=== PATIENT | female | born 1990 | race Two or more races ===

== ENCOUNTER 2020-04-13 17:21 | Emergency (ER) | payer MEDICAID ==
[~2020-04-13] VITALS: Ht 162.6 cm; Wt 63.3 kg
--- NOTE | 2020-04-13 17:38 | NUR ---
PT AMBULATED TO THE BR W/ A STEADY GAIT.
[2020-04-13] MEDS ORDERED: MORPHINE SULFATE 4 MG/ML, 1ML ONE (17:59)
[2020-04-13] MEDS ORDERED: ONDANSETRON 2MG/ML, 2ML ONE (17:59)
[2020-04-13] MEDS ORDERED: SODIUM CHLORIDE FLUSH 10ML SYR IVF ONE (18:00)
[2020-04-13] MEDS ORDERED: MORPHINE SULFATE 4 MG/ML, 1ML IVPush PRN (18:00)
[2020-04-13] MEDS ORDERED: SODIUM CHLORIDE 0.9%, 500ML IVBOLUS ONE (18:00)
[2020-04-13] MEDS ORDERED: ONDANSETRON 2MG/ML, 2ML IVPush ONE (18:00)
[2020-04-13 18:07] LABS: MICROSCOPIC AUTO
[2020-04-13 18:23] VITALS: BP 120/81
[2020-04-13 18:32] LABS: MEAN CORPUSCULAR HEMOGLOBIN 17.7 pg (27.0-34.8); MEAN CORPUSCULAR VOLUME 58.8 fL (80-100); MEAN PLATELET VOLUME 8.4 fL (7.4-10.4); PLATELET COUNT 497 x10^3/uL (130-400); RED BLOOD COUNT 4.45 x10^6/uL (3.82-5.3); RED CELL DISTRIBUTION WIDTH 20.8 % (9.6-15.2)
[2020-04-13 18:37] LABS: ALANINE AMINOTRANSFERASE 21 U/L (12-78); ALBUMIN 4.2 g/dL (3.4-5.0); ANION GAP 5 mmol/L (5-15); CALCIUM 8.9 mg/dL (8.5-10.1); CHLORIDE 110 mmol/L (98-107); CREATININE 0.68 mg/dL (0.55-1.02)
[2020-04-13 18:41] LABS: ALKALINE PHOSPHATASE 115 U/L (45-117); BILIRUBIN,TOTAL 0.6 mg/dL (0.2-1.0); TOTAL PROTEIN 8.8 g/dL (6.4-8.2)
[2020-04-13 18:48] LABS: MD YES
--- NOTE | 2020-04-13 18:49 | NUR ---
PT TO CT.
[2020-04-13 18:55] LABS: EOS#(MANUAL) 0.13 x10^3/uL (0.0-0.4); EOS% (MANUAL) 2 % (1-7); LYMPH#(MANUAL) 2.57 x10^3/uL (1-3.4); LYMPHS% (MANUAL) 39 % (22-44); MONOS% (MANUAL) 6 % (2-9); SEGS% (MANUAL) 53 % (42-75)
[2020-04-13 18:57] LABS: ANISOCYTOSIS 2+; HYPOCHROMIA 2+; MICROCYTOSIS 2+; OVALOCYTES 1+; POLYCHROMASIA 1+
--- NOTE | 2020-04-13 18:58 | NUR ---
REPORT FROM ERICKSON FABIAN, PT NOW BACK FROM CT.
[2020-04-13 18:59] LABS: <PLATELET ESTIMATE> INCREASED; TEAR DROPS 1+
[2020-04-13 19:00] LABS: <PLT MORPHOLOGY> NORMAL PLT MORPH
[2020-04-13] MEDS ORDERED: OMNIPAQUE 350 MG/ML, 100ML BOTTLE ONE (19:30)
--- NOTE | 2020-04-13 19:33 | NUR ---
PT TO US AT THIS TIME, VIA [facility]
--- NOTE | 2020-04-13 20:09 | NUR ---
PT BACK IN ROOM RESTING ON [facility] GILMORE CALL LIGHT IN REACH
[2020-04-13] MEDS ORDERED: CEFTRIAXONE 250 MG ONE (20:44)
[2020-04-13] MEDS ORDERED: AZITHROMYCIN 250 MG TABLET ONE (20:44)
[2020-04-13 20:47] LABS: CLUE CELLS NONE SEEN (NONE SEEN); WET PREP WBCS MODERATE (FEW)
[2020-04-13] MEDS ORDERED: CEFTRIAXONE 250 MG IV ONE (21:00)
[2020-04-13] MEDS ORDERED: AZITHROMYCIN 500 MG TABLET PO ONE (21:00)
--- NOTE | 2020-04-13 21:10 | NUR ---
Patient/Caregiver given discharge instructions and they have confirmed that they understand the instructions. Patient ambulatory with steady gait.
== END 2020-04-13 21:11 | disposition home or self-care (01) ==
LOC: ED 19:33
DX: N34.1 Nonspecific urethritis (principal); D64.9 Anemia, unspecified
CPT/HCPCS: 36415; 74177; 76830; 80053; 81001; 83690; 84703; 85025; 87086; 87210; 87491; 87591; 87808; 96365; 96375; 99285; J0696; J2270; J2405; J7040; Q9967

== ENCOUNTER 2020-04-15 18:03 | Emergency (ER) | payer MEDICAID ==
[~2020-04-15] VITALS: Ht 162.6 cm; Wt 63.5 kg
[2020-04-15] MEDS ORDERED: MORPHINE SULFATE 4 MG/ML, 1ML IVPush PRN (18:30)
--- NOTE | 2020-04-15 18:34 | NUR ---
FIRST CONTACT WITH PT. PT C/O RT LOW ABD PAIN AND NAUSEA WITH DZY. SEEN HERE FOR SAME X2 DAYS AGAIN. STATES HX ANEMIA. PT'S AOX4. RESPS EVEN AND UNLABORED. BP/SPO2 MONITORS IN PLACE. CALL LIGHT WITHIN REACH. PA AT BEDSIDE TO EVALUATE. UA SENT.
[2020-04-15] MEDS ORDERED: ONDANSETRON 2MG/ML, 2ML ONE (18:39)
[2020-04-15] MEDS ORDERED: FAMOTIDINE 20 MG/2 ML ONE (18:40)
[2020-04-15] MEDS ORDERED: MORPHINE SULFATE 4 MG/ML, 1ML ONE (18:40)
[2020-04-15 18:42] LABS: MICROSCOPIC AUTO
[2020-04-15 18:50] LABS: MEAN CORPUSCULAR HEMOGLOBIN 17.7 pg (27.0-34.8); MEAN CORPUSCULAR HGB CONC 29.5 g/dL (32.4-35.8); MEAN PLATELET VOLUME 8.3 fL (7.4-10.4); PLATELET COUNT 458 x10^3/uL (130-400); RED BLOOD COUNT 4.34 x10^6/uL (3.82-5.3); RED CELL DISTRIBUTION WIDTH 20.2 % (9.6-15.2)
[2020-04-15 18:53] LABS: ALANINE AMINOTRANSFERASE 16 U/L (12-78); ALBUMIN 3.9 g/dL (3.4-5.0); ANION GAP 6 mmol/L (5-15); CALCIUM 8.6 mg/dL (8.5-10.1); CHLORIDE 110 mmol/L (98-107); CREATININE 0.66 mg/dL (0.55-1.02)
--- NOTE | 2020-04-15 18:56 | NUR ---
ASSUMED CARE OF PT. PT MEDICATED AND RESTING AT THIS TIME. WILL REASSESS.
[2020-04-15 18:58] LABS: ALKALINE PHOSPHATASE 99 U/L (45-117); BILIRUBIN,TOTAL 0.5 mg/dL (0.2-1.0); TOTAL PROTEIN 8.1 g/dL (6.4-8.2)
--- NOTE | 2020-04-15 18:58 | NUR ---
PIV EST ON L HAND WITH NO COMPLICATIONS. PT MEDICATED PER EMAR. PT TOLERATED WELL. NS INFUSING AT THIS TIME.
--- NOTE | 2020-04-15 18:59 | NUR ---
REPORT GIVEN TO CASIMIRO FABIAN.
[2020-04-15] MEDS ORDERED: SODIUM CHLORIDE 0.9% 1,000ML IVBOLUS ONE (19:00)
[2020-04-15] MEDS ORDERED: ONDANSETRON 2MG/ML, 2ML IVPush ONE (19:00)
[2020-04-15] MEDS ORDERED: FAMOTIDINE 20 MG/2 ML IV ONE (19:00)
[2020-04-15 19:03] LABS: BASOPHILS # (AUTO) 0.03 x10^3/uL (0-0.1); BASOPHILS % (AUTO) 1 % (0-1); EOSINOPHILS # (AUTO) 0.19 x10^3/uL (0-0.4); EOSINOPHILS % (AUTO) 3 % (1-7); LYMPHOCYTES # (AUTO) 2.01 x10^3/uL (1-3.4); LYMPHOCYTES % (AUTO) 35 % (22-44); MD MORPH REVIEW ONLY; MONOCYTES # (AUTO) 0.38 x10^3/uL (0.2-0.8); MONOCYTES % (AUTO) 7 % (2-9); NEUTROPHILS # (AUTO) 3.19 x10^3/uL (1.8-6.8); NEUTROPHILS % (AUTO) 55 % (42-75)
[2020-04-15 19:04] LABS: MICROCYTOSIS 2+
[2020-04-15 19:05] LABS: HYPOCHROMIA 2+; OVALOCYTES 1+; POLYCHROMASIA 1+; TEAR DROPS 1+
[2020-04-15 19:06] LABS: <PLATELET ESTIMATE> INCREASED; <PLT MORPHOLOGY> NORMAL PLT MORPH
[2020-04-15] MEDS ORDERED: DIPHENHYDRAMINE 50 MG/ML, 1ML ONE (19:06)
[2020-04-15] MEDS ORDERED: SODIUM CHLORIDE FLUSH 10ML SYR IVF ONE (19:30)
[2020-04-15] MEDS ORDERED: DIPHENHYDRAMINE 50 MG/ML, 1ML IVPush ONE (19:30)
--- NOTE | 2020-04-15 19:43 | NUR ---
PT WAS GIVEN BENADRYL IV PER EMAR AFTER FEELING ITCHY AFTER RECEIVING MORPHINE, ZOFRAN AND PEPCID IV. PT REPORTS THE ONLY MEDICATION SHE HAS NOT HAD BEFORE IS PEPCID. NO CHEST PAIN, THROAT SWELLING OR TROUBLE BREATHING. PT FEELING MUCH BETTER AFTER BENADRYL AND NO LONGER ITCHING. TYPE AND SCREEN DRAWN. PT RESTING WITH NO COMPLAINTS.
[2020-04-15 21:09] VITALS: BP 124/76
== END 2020-04-15 21:12 | disposition home or self-care (01) ==
LOC: ED 21:05
DX: N30.00 Acute cystitis without hematuria (principal); D64.9 Anemia, unspecified; R11.2 Nausea with vomiting, unspecified
CPT/HCPCS: 36415; 80053; 81001; 84703; 85025; 86850; 86900; 87086; 96361; 96374; 96375; 99284; J1200; J2270; J2405; J3490; J7030